=== PATIENT | female | born 1995 | race Caucasian/White ===

== ENCOUNTER 2016-12-04 21:38 | Emergency (ER) | payer OTHER ==
[2016-12-04 22:01] VITALS: BP 135/96
--- NOTE | 2016-12-04 22:22 | UC ---
Throat Pain/Nasal Sp HPI - HPI Summary HPI Summary: Has had nasal congestion, cough, chest congestion, mild ST for more than a week. Was feeling much better over the weekend, then stayed up late studying last night and feels much worse today with ST. Noticed that nasal congestion is thicker today. Denies new fever or trouble breathing. - History of Current Complaint Chief Complaint: UCRespiratory Stated Complaint: SORE THROAT,COUGH Time Seen by Provider: 12/04/16 21:59 Hx Obtained From: Patient Hx Last Menstrual Period: 11/23/16 ?: No Onset/Duration: Gradual Onset, Lasting Days Severity: Moderate Cough: Productive Associated Signs & Symptoms: Positive: Hoarseness, Sinus Discomfort, Nasal Discharge. Negative: Fever, Vomiting - Allergies/Home Medications Allergies/Adverse Reactions: Allergies Allergy/AdvReac Type Severity Reaction Status Date / Time No Known Allergies Allergy Verified 12/04/16 22:01 PMH/Surg Hx/FS Hx/Imm Hx Previously Healthy: Yes - Surgical History Surgical History: Yes Surgery Procedure, Year, and Place: sacral - Family History Known Family History: Negative: Blood Disorder - Social History Occupation: Student Lives: Alone Alcohol Use: None Substance Use Type: None Smoking Status (MU): Never Smoked Tobacco Review of Systems Constitutional: Fatigue Skin: Negative Eyes: Negative ENT: Sore Throat, Nasal Discharge, Sinus Congestion Respiratory: Cough Cardiovascular: Negative Gastrointestinal: Negative Genitourinary: Negative Motor: Negative Neurovascular: Negative Musculoskeletal: Negative Neurological: Negative Psychological: Negative Is Patient Immunocompromised?: No All Other Systems Reviewed And Are Negative: Yes Physical Exam Triage Information Reviewed: Yes Appearance: Well-Appearing, No Pain Distress, Well-Nourished Vital Signs: Initial Vital Signs Temp 98.6 F 12/04/16 21:57 Pulse 86 12/04/16 21:57 Resp 16 12/04/16 21:57 BP 135/96 12/04/16 21:57 Pulse Ox 100 12/04/16 21:57 Vital Signs Reviewed: Yes Eye Exam: Normal, Other - PERRL Eyes: Positive: Conjunctiva Clear ENT: Positive: Pharynx normal, Nasal congestion, Nasal drainage, TMs normal. Negative: Tonsillar swelling, Tonsillar exudate Dental Exam: Normal Neck exam: Normal Neck: Positive: Supple, Nontender, No Lymphadenopathy Respiratory Exam: Other - frequent cough Respiratory: Positive: Chest non-tender, Lungs clear, Normal breath sounds, No respiratory distress, No accessory muscle use Cardiovascular Exam: Normal Cardiovascular: Positive: RRR, No Murmur Musculoskeletal Exam: Normal Neurological Exam: Normal Neurological: Positive: Alert Psychological Exam: Normal Skin Exam: Normal Throat Pain/Nasal Course/Dx - Differential Dx/Diagnosis Provider Diagnoses: acute bacterial rhinosinusitis Discharge - Discharge Plan Condition: Stable Disposition: HOME Prescriptions: Amoxicillin/Clavulanate TAB* [Augmentin TAB 875*] 875 mg PO BID #14 tab Patient Education Materials: Rhinosinusitis (ED) Additional Instructions: Rapid strep negative. Your throat pain is likely secondary to your sinusitis. You need to get plenty of sleep and fluids. I expect that through this week you should have gradual improvement. If you have fever, significant worsening from here, or trouble breathing, please call or return.
[2016-12-04] MEDS ORDERED: Amoxicillin/Clavulanate TAB* 875 MG PO ONE (22:30)
== END 2016-12-04 22:46 | disposition home or self-care (01) ==
LOC: UCEAST 21:38
DX: J01.90 Acute sinusitis, unspecified (principal); J02.9 Acute pharyngitis, unspecified
CPT/HCPCS: 87651; 99212; A9270-GY; G0463